=== PATIENT | male | born 1950 | race Hispanic/Latino ===

== ENCOUNTER 2018-03-19 14:41 | Emergency (ER) | payer MEDICARE ==
[~2018-03-19] VITALS: Ht 152.4 cm; Wt 90.7 kg
[2018-03-19] MEDS ORDERED: METFORMIN HCL500 MG PO (15:03)
[2018-03-19] MEDS ORDERED: NORVASC5 MG PO (15:03)
[2018-03-19] MEDS ORDERED: HYDROCODONE/APAP 5MG-325MG TAB PO ONE (18:00)
== END 2018-03-19 18:27 | disposition home or self-care (01) ==
LOC: FSED 14:41
DX: M25.512 Pain in left shoulder (principal); R42 Dizziness and giddiness; R51 Headache; W01.0XXA Fall on same level from slipping, tripping and stumbling without subsequent striking against object, initial encounter; Y92.002 Bathroom of unspecified non-institutional (private) residence as the place of occurrence of the external cause; I10 Essential (primary) hypertension; E11.9 Type 2 diabetes mellitus without complications
CPT/HCPCS: 70450; 71250; 80048; 81003; 84484; 85025; 93005; 99284